=== PATIENT | female | born 1950 | race Caucasian/White ===

== ENCOUNTER 2020-01-19 12:12 | Outpatient (CLI) | payer MEDICARE, OTHER, SELFPAY ==
--- NOTE | ~2020-01-19 | DEXA_ITS ---
BMD(1) Young-Adult(2) Age-Matched(3) Region (g/cm2) T-score Z-score WHO Classification L1 1.214 0.6 2.0 Normal L2 1.300 0.8 2.2 Normal L3 1.179 -0.3 1.1 Normal L4 1.105 -0.9 0.5 Normal L1-L4 1.196 0.0 1.4 Normal Trend: L1-L4 Change vs Change vs Measured Age BMD(1) Baseline Previous Date ([age]) (g/cm2) (%) (%) 01/19/2020 [age] 1[age]196 baseline - 1 - Statistically 68% of repeat scans fall within 1SD (+- 0.010 g/cm2 for AP Spine L1-L4) 2 - [place] (Combined [place]ANES (ages 20-30) / [employer] (ages 20-40)) AP Spine Reference Population (v112) 3 - Matched for Age, Weight (females 25-100 kg), Ethnic 11 - World Health Organization - Definition of Osteoporosis and Osteopenia for Women: Normal = T-score at or above -1.0 SD; Osteopenia = T-score between -1.0 and -2.5 SD; Osteoporosis = T-score at or below -2.5 SD; (WHO definitions only apply when a young healthy Women reference database is used to determine T-scores.) Printed: 01/19/2020 12:48:54 PM (13.60)76:3.00:50.00:12.0 0.00:9.90 0.60x1.05 20.3:%Fat=25.6% 0.00:0.00 0.00:0.00 Filename: [id number] Scan Mode: Standard;OneScan 37.0 [employer] [id number] BMD(1) Young-Adult(2,7) Age-Matched(3) Region (g/cm2) T-score Z-score WHO Classification Neck Left 0.771 -1.9 -0.4 Osteopenia Right 0.753 -2.0 -0.5 Osteopenia Mean 0.762 -2.0 -0.4 Osteopenia Difference 0.018 0.1 0.1 - Total Left 0.823 -1.5 -0.2 Osteopenia Right 0.791 -1.7 -0.4 Osteopenia Mean 0.807 -1.6 -0.3 Osteopenia Difference 0.033 0.3 0.3 - Hip Victor Length Comparison (mm) (Right = 118.8 mm) (Mean = 112.1 mm) (Left = 117.2 mm) Trend: Total Mean Change vs Change vs Measured Age BMD(1) Baseline Previous Date (years) (g/cm2) (%) (%) 01/19/2020 69.4 0[age]807 baseline - 1 - Statistically 68% of repeat scans fall within 1SD (+- 0.010 g/cm2 for DualFemur Total) 2 - [place] (Combined [place]ANES (ages 20-30) / [employer] (ages 20-40)) Femur Reference Population (v112) 3 - Matched for Age, Weight (females 25-100 kg), Ethnic 7 - DualFemur Total T-score difference is 0.3. Asymmetry is None. 11 - World Health Organization - Definition of Osteoporosis and Osteopenia for Women: Normal = T-score at or above -1.0 SD; Osteopenia = T-score between -1.0 and -2.5 SD; Osteoporosis = T-score at or below -2.5 SD; (WHO definitions only apply when a young healthy Women reference database is used to determine T-scores.) Printed: 01/19/2020 12:48:54 PM (13.60); Filename: [id number]; Right Femur; 16.6:%Fat=30.3%; Neck Angle (deg)= 55; Scan Mode: Standard 37.0 uGy; Left Femur; 17.3:%Fat=29.5%; Neck Angle (deg)= 57; Scan Mode: Standard 37.0 uGy [facility] [id number] Dear Timmy Vazquez, Your patient Kayli Haas completed a BMD test on 01/19/2020 using the [employer] DXA System (analysis version: 13.60) manufactured by [employer]. The following summarizes the results of our evaluation. PATIENT BIOGRAPHICAL: Name: Kayli Haas Date: 1950 Height: 70.0 in. Gender: Female
== END 2020-01-19 12:13 | disposition home or self-care (01) ==
LOC: CHSIMG 12:17
PROVIDERS: PCP Family Medicine; Visit Provider Family Medicine
DX: Z78.0 Asymptomatic menopausal state (principal)
CPT/HCPCS: 77080